=== PATIENT | female | born 1985 | race Caucasian/White ===

== ENCOUNTER 2017-12-22 21:02 | Emergency (ER) | payer OTHER ==
--- NOTE | 2017-12-22 21:10 | ED Physician Documentation ---
PD HPI UPPER EXT INJURY - Stated complaint Stated Complaint: L PINKY LAC - History obtained from History obtained from: Patient - History of Present Illness Location: Left Type of injury: Laceration Where injury occurred: Home Timing - onset: Enter time (20:00), Today Timing - details: Abrupt onset Associated symptoms: No: Weakness, Numbness, Tingling Similar symptoms before: Has not had sx before Recently seen: Not recently seen - Additonal information Additional information: patient is right hand dominant. Tonight, she was pitting an avocado when the knife slipped, resulting in a laceration to her left fifth digit (finger). UTD on tetanus (approximately 5 years ago) Review of Systems Skin: reports: Laceration (s) Neurologic: denies: Focal weakness, Numbness PD PAST MEDICAL HISTORY - Past Medical History Past Medical History: Yes Psych: Anxiety - Allergies Allergies/Adverse Reactions: Allergies Allergy/AdvReac Type Severity Reaction Status Date / Time No Known Drug Allergies Allergy Verified 12/22/17 21:06 PD ED PE NORMAL - Vitals Vital signs reviewed: Yes - General General: Alert and oriented X 3, No acute distress, Well developed/nourished - Neuro Neuro: No motor deficit, No sensory deficit, Other (LTS intact tip of left fifth digit with brisk capillary refill. FROM and strength left fifth digit (extension, flexion, abduction, adduction)) PD ED PE EXPANDED - Extremities KERON UE/Hands Visual: 1 - laceration (2 cm length with exposed subcutaneous soft tissue) Procedures - Laceration (location) Finger left Length in cm: 2 Wound type: Linear Neurovascular status: Sensory intact, Motor intact, Vascular intact Tendon involvement: Tendon intact Anesthesia: Lidocaine 1% Wound Preparation: Hibiclens Skin layer closure: Nylon, Running, Size #-0 - enter number (5-0) Other: Patient tolerated well, No complications, Neurovascular intact, Dressing applied, Tetanus UTD Complexity: Simple PD MEDICAL DECISION MAKING - ED course Complexity details: considered differential, d/w patient Departure - Departure Disposition: 01 Home, Self Care Clinical Impression: Laceration Condition: Good Instructions: ED Laceration Hand Follow-Up: Thony Jefferson MD [Primary Care Provider] - (Follow up with your doctor in 1 week for removal of the stitches) Discharge Date/Time: 12/22/17 22:00
[2017-12-22 21:16] VITALS: BP 117/80
[2017-12-22] MEDS ORDERED: LIDOCAINE 1% 2 ML VIAL SUBQ STA (21:23)
[2017-12-22] MEDS ORDERED: BACITRACIN OINT TOP ONE (21:51)
== END 2017-12-22 22:00 | disposition home or self-care (01) ==
LOC: ED 21:02
DX: S61.217A Laceration without foreign body of left little finger without damage to nail, initial encounter (principal); W26.0XXA Contact with knife, initial encounter; Y93.G1 Activity, food preparation and clean up
CPT/HCPCS: 12001; 99282; 99283; A9270